=== PATIENT | female | born 1950 ===

== ENCOUNTER 2017-02-04 06:38 | Day surgery (SDC) | payer MEDICAID ==
[2017-02-04 07:07] VITALS: BMI 31.2
[2017-02-04 07:16] VITALS: O2SAT 100
[2017-02-04] MEDS ORDERED: Lactated Ringer's 500 ML IV ONE (08:50)
--- NOTE | 2017-02-04 08:51 | CP.SDSHP ---
Same Day Surgery H & P - History Proposed Procedure: Colonoscopy Pre-Op Diagnosis: Screening exam - Previous Medical/Surgical History Pulmonary: Asthma Endocrine/Metabolic: Diabetes, Other (yperlipidemia) Misc: Other (HIV Disease. GERD) Previous Surgical History: PEPPER - Allergies Allergies: Allergies tramadol Allergy (Verified 02/04/17 06:58) DIZZINESS - Current Medications Current Medications: Reviewed, per reconciliation - Physical Exam General Appearance: wdwn nad Vital Signs: Vital Signs 02/04/17 07:07 Temperature 97.1 F L Pulse Rate 84 Respiratory 18 Rate Blood Pressure 135/100 H O2 Sat by Pulse 100 Oximetry Mental Status: Alert & Oriented x3 Neuro: WNL Heart: WNL Lungs: WNL GI: WNL - {Optional Preform as Required} Abdomen: WNL - Impression Impression: Screening exam for colorectal neoplasia Pt. Evaluated Today:Candidate for Anesthesia & Procedure: Yes - Date & Time Date: 02/04/17 Time: 08:51 Short Stay Discharge - Short Stay Discharge Admitting Diagnosis/Reason for Visit: ENCOUNTER FOR SCREENING FOR MALIGNANT NEOPLASM OF Disposition: HOME/ ROUTINE
[2017-02-04 09:37] VITALS: TEMP 98.1
[2017-02-04 10:03] VITALS: BP 127/82; PULSE 65; RESP 16
== END 2017-02-04 10:01 | disposition home or self-care (01) ==
LOC: C.ENDO 06:38
PROVIDERS: ATTEND Internal Medicine Gastroenterology
DX: Z12.11 Encounter for screening for malignant neoplasm of colon (principal); K64.0 First degree hemorrhoids; K57.30 Diverticulosis of large intestine without perforation or abscess without bleeding; E11.9 Type 2 diabetes mellitus without complications; K21.9 Gastro-esophageal reflux disease without esophagitis; J44.9 Chronic obstructive pulmonary disease, unspecified; F41.9 Anxiety disorder, unspecified; F17.210 Nicotine dependence, cigarettes, uncomplicated; Z21 Asymptomatic human immunodeficiency virus [HIV] infection status; Z79.84 Long term (current) use of oral hypoglycemic drugs
CPT/HCPCS: 45378; 82948; J7120

== ENCOUNTER 2017-03-25 06:09 | Day surgery (SDC) | payer MEDICAID ==
[2017-03-25 06:52] VITALS: BMI 33.6
[2017-03-25 06:58] VITALS: O2SAT 100
[2017-03-25] MEDS ORDERED: Propofol 10 mg/ml Inj (20 ML) ONE (08:12)
[2017-03-25] MEDS ORDERED: Lidocaine Hydrochloride 5 ML INJ ONE (08:12)
[2017-03-25] MEDS ORDERED: Lactated Ringer's 1,000 ML IV ONE (08:15)
--- NOTE | 2017-03-25 08:16 | CP.SDSHP ---
Same Day Surgery H & P - History Proposed Procedure: Colonoscopy Pre-Op Diagnosis: Screening - Previous Medical/Surgical History Pulmonary: Asthma Endocrine/Metabolic: Diabetes Comments: HIV Disease, GERD Previous Surgical History: PEPPER - Allergies Allergies: Allergies tramadol Allergy (Verified 02/04/17 06:58) DIZZINESS - Current Medications Current Medications: reviewed, per reconciliation - Physical Exam General Appearance: wdwn nad Vital Signs: Vital Signs 03/25/17 06:52 Temperature 97.3 F L Pulse Rate 80 Respiratory 20 Rate Blood Pressure 138/87 O2 Sat by Pulse 100 Oximetry Mental Status: Alert & Oriented x3 Heart: WNL Lungs: WNL GI: WNL - {Optional Preform as Required} Abdomen: WNL - Impression Impression: Screening colonoscopy, average risk Pt. Evaluated Today:Candidate for Anesthesia & Procedure: Yes - Date & Time Date: 03/25/17 Time: 08:16 Short Stay Discharge - Short Stay Discharge Admitting Diagnosis/Reason for Visit: SCREENING Disposition: HOME/ ROUTINE Referrals: Bill Augustine MD [Primary Care Provider] -
[2017-03-25 08:51] VITALS: TEMP 97.7
[2017-03-25 09:10] VITALS: RESP 14
[2017-03-25 09:36] VITALS: BP 136/94; PULSE 80
== END 2017-03-25 09:35 | disposition home or self-care (01) ==
LOC: C.ENDO 06:09
PROVIDERS: ATTEND Internal Medicine Gastroenterology
DX: K57.90 Diverticulosis of intestine, part unspecified, without perforation or abscess without bleeding (principal)
CPT/HCPCS: 45378; 82948; J2704; J7120